=== PATIENT | male | born 1985 | race Caucasian/White ===

== ENCOUNTER 2019-04-24 13:08 | Emergency (ER) | payer OTHER ==
[~2019-04-24] VITALS: Ht 182.9 cm; Wt 90.3 kg
[2019-04-24 13:14] VITALS: BP 111/73
--- NOTE | 2019-04-24 13:20 | NUR ---
present pov with entire abdominal wall muscular pain as well as epigastric cramping. no vomiting, denies chest pain/sob/illicits/medical hx vss appears well. Provider at bedside plan to send home on motrin/muscle relaxers-song writer/patient agreeable
== END 2019-04-24 14:08 | disposition home or self-care (01) ==
LOC: ED 13:50
DX: S39.011A Strain of muscle, fascia and tendon of abdomen, initial encounter (principal); R07.89 Other chest pain; X58.XXXA Exposure to other specified factors, initial encounter; Y93.89 Activity, other specified; Y92.89 Other specified places as the place of occurrence of the external cause; Y99.8 Other external cause status
CPT/HCPCS: 93005; 99283